=== PATIENT | male | born 1965 | race Caucasian/White ===

== ENCOUNTER → 2017-07-22 09:47 | Outpatient (CLI) | payer MEDICAID, SELFPAY ==
[2017-07-22 13:22] LABS: Basophils % 0.9 % (0.1-2.0); Eosinophils # 0.3 K/mm3 (0.0-0.4); Eosinophils % 6.4 % (0.1-12.0); Hematocrit 37.4 % (42.0-52.0); Hemoglobin 12.4 g/dL (14.1-18.0); Lymphocytes # 1.3 K/mm3 (0.7-4.5); Lymphocytes % 33.2 K/mm3 (10-50); Mean Corpuscular HGB Conc 33.2 g/dL (31.8-35.4); Mean Corpuscular Hemoglobin 32.6 pg (27.0-31.2); Mean Corpuscular Volume 98.3 fl (80-94); Mean Platelet Volume 12.8 fl (7.4-10.4); Monocytes # 0.2 K/mm3 (0.1-1.0); Monocytes % 4.8 % (1.7-9.3); Neutrophils # 2.1 K/mm3 (1.8-7.8); Neutrophils % 54.7 % (37.0-80.0); Platelet Count 74 K/mm3 (142-424); Red Blood Count 3.81 M/mm3 (4.60-6.20); Red Cell Distribution Width 14.5 % (11.5-17.5); White Blood Count 3.9 K/mm3 (4.8-10.8)
[2017-07-22 13:34] LABS: Alanine Aminotransferase 40 U/L (12-78); Albumin Level 2.8 gm/dL (3.4-5.0); Albumin/Globulin Ratio 0.6 (1.1-1.8); Alkaline Phosphatase 114 U/L (46-116); Anion Gap 9.2 mEq/L (5-15); Aspartate Amino Transferase 62 U/L (15-37); Bilirubin,Total 1.4 mg/dL (0.2-1.0); Blood Urea Nitrogen 12 mg/dL (7-18); Calcium 8.5 mg/dL (8.5-10.1); Carbon Dioxide 28 mmol/L (21.0-32.0); Chloride 105 mmol/L (98-107); Estimated Glomerular Filt Rate 70 ml/min (>60); GFR (African American) 84 ML/MIN (>60); Globulin 4.5 gm/dl (1.3-3.2); Glucose 146 mg/dL (74-106); Potassium 4.2 mmoL/L (3.5-5.1); Sodium 138 mmol/L (136-145); Total Protein,Serum 7.3 gm/dL (6.4-8.2)
== END ==
PROVIDERS: PCP Internal Medicine Adolescent Medicine; Visit Provider Internal Medicine Adolescent Medicine
DX: K70.31 Alcoholic cirrhosis of liver with ascites (principal)
CPT/HCPCS: 36415; 80053; 85025

== ENCOUNTER → 2017-07-28 12:55 | Outpatient (CLI) | payer MEDICAID, SELFPAY ==
[2017-07-27 12:00] LABS: INR 1.16 (0.9-1.1); Prothrombin Time 12.5 seconds (9.4-11.8)
== END ==
PROVIDERS: PCP Internal Medicine Adolescent Medicine; Visit Provider Surgery
DX: K46.9 Unspecified abdominal hernia without obstruction or gangrene (principal)
CPT/HCPCS: 36415; 85610

== ENCOUNTER → 2017-08-13 06:48 | Outpatient (CLI) | payer MEDICAID, SELFPAY ==
--- NOTE | 2017-08-13 06:53 | NM_ITS ---
History and Indications: Tobacco use, shortness of breath and abnormal EKG. Procedure: Patient received a 0.4 mg of Lexiscan, resting heart rate was 59 beats per resting blood pressure 109/67, with Lexiscan maximum heart rate achieved was 78 bpm which is less than 85% of the maximum predicted heart rate and a blood pressure was 66/34. With Lexiscan patient complained of shortness of breath and lightheadedness. Electrocardiogram: Resting electrocardiogram showed sinus rhythm poor R wave progression, left axis deviation, with Lexiscan there is less than 1.[address] segment depression noted from the baseline EKG. The EKG portion of the Lexiscan Myoview is nondiagnostic. Cardiac stress and resting SPECT images: Cardiac stress and rest SPECT images were obtained using technetium 99 Myoview 10.9 mCi at rest and 31.7 mCi at stress, gated SPECT further analysis of segmental wall motion and calculation of the ejection fraction also done. Cardiac stress and rest images show uniform myocardial activity without any segmental perfusion abnormality, computer derived ejection fraction is 60% with no obvious regional wall motion abnormality, right ventricle is normal size and contractility. Conclusion: 1. The EKG portion of the Lexiscan Myoview is nondiagnostic. 2. No obvious scintigraphic evidence of reversible ischemia, computer derived ejection fraction is 60% with no obvious regional wall motion abnormality, right ventricle is normal size and contractility. 3. Normal Lexiscan Myoview study.
--- NOTE | 2017-08-13 06:57 | CA_ITS ---
PROCEDURE: 2-D M-mode and color Doppler study INDICATIONS FOR THE TEST: Chest pain COPD Heart Murmur Tobacco Smoking Palpitations Fatigue Syncope Edema Hypertension Diabetes Mellitus Rheumatic Fever SOB IQBAL Obesity Hyperlipidemia Family History HD Additional History PREOP PATIENT INFORMATION HEIGHT: 69 WEIGHT:192 GENDER: Male B/P:101/69 2-D/M-MODE INTERPRETATION: 2-D MEASUREMENTS OBSERVED VALUES IN CMS Right Ventricular Dimension (RVDd) 3.2 Interventricular Septum (Thickness)(IVsd) .9 Left Ventricular Internal Dimensions(LVIDd) 5.4 Left Ventricular Posterior Wall (Thickness)(LVPWd) .9 Aortic Root 3.4 Aortic Cusp Separation 2.2 Left Atrial Dimensions (LAD) 3.9 2D 1. Left atrium is normal size, left ventricle is normal size, visually estimated ejection fraction 55% with no obvious regional wall motion abnormality. 2. The right atrium and right ventricle are relatively normal size and function. 3. The aortic valve is minimally thickened and fibrosed. 4. The mitral, tricuspid and pulmonic valve are grossly normal. 5. No significant pericardial effusion noted. DOPPLER INTERROGATION: Doppler interrogation of the aortic, mitral and tricuspid valvular presence of mild mitral and tricuspid regurgitation of no hemodynamic significance, grade 1 diastolic dysfunction seen without tissue Doppler evidence of raised left atrial pressure. CONCLUSION: 1. Normal left ventricular size, preserved left ventricular systolic function, visually estimated ejection fraction 55% with no obvious regional wall motion abnormality, grade 1 diastolic dysfunction seen without tissue Doppler evidence of raised left atrial pressure. 2. Mild mitral and tricuspid regurgitation 3. No significant pericardial effusion noted.
--- NOTE | 2017-08-13 11:05 | HMH.ITSHM ---
spironolactone furosemide nadolol pantoprazole folic acid norco
== END ==
PROVIDERS: PCP Internal Medicine Adolescent Medicine; Visit Provider Internal Medicine
DX: Z01.818 Encounter for other preprocedural examination (principal); Z01.810 Encounter for preprocedural cardiovascular examination; F17.200 Nicotine dependence, unspecified, uncomplicated; K46.9 Unspecified abdominal hernia without obstruction or gangrene; R94.31 Abnormal electrocardiogram [ECG] [EKG]
CPT/HCPCS: 78452; 93017; 93306; A9502; J2785

== ENCOUNTER → 2017-08-18 08:52 | Outpatient (CLI) | payer MEDICAID, SELFPAY ==
--- NOTE | 2017-08-18 09:02 | US_ITS ---
US abdomen complete HISTORY: ITS.REASON: CIRRHOSIS ORDERING PHYSICIAN: Saul Marc PATIENT AGE: 52 years COMPARISON: Ultrasound of 03/05/2016 FINDINGS: There is a large amount of ascites. PANCREAS:Unremarkable. No obvious mass or abnormal fluid collection. No ductal dilatation LIVER:Liver has somewhat irregular border consistent with cirrhosis. There is appropriate direction of blood flow within the portal vein. Portal vein is slightly enlarged measuring up to 14 mm. There is splenomegaly at 16 cm. No focal liver lesion apparent RIGHT KIDNEY:Unremarkable. Normal size and echogenicity. No hydronephrosis LEFT KIDNEY:Unremarkable. No hydronephrosis. Normal size and echogenicity. GALLBLADDER:Gallbladder wall appears thickened however this may be due to the overlying ascites. No gallstones or biliary dilatation. Common bile duct is 4 mm. AORTA:Not imaged SPLEEN:Enlarged at 16 cm ASCITES:Large amount of ascites IMPRESSION: The findings are consistent with cirrhosis and portal hypertension with cirrhotic appearing liver, mildly prominent portal vein, diffuse ascites, and splenomegaly. Overall no significant change
== END ==
PROVIDERS: PCP Internal Medicine Adolescent Medicine; Visit Provider Internal Medicine
DX: K74.60 Unspecified cirrhosis of liver (principal)
CPT/HCPCS: 76700

== ENCOUNTER → 2017-09-14 09:31 | Outpatient (CLI) | payer MEDICARE, SELFPAY ==
[2017-09-14 13:43] LABS: Anion Gap 12.8 mEq/L (5-15); Blood Urea Nitrogen 13 mg/dL (7-18); Carbon Dioxide 24 mmol/L (21.0-32.0); Chloride 99 mmol/L (98-107); Creatinine,Serum 1.14 mg/dL (0.70-1.30); Estimated Glomerular Filt Rate 67 ml/min (>60); GFR (African American) 81 ML/MIN (>60); Glucose 132 mg/dL (74-106); Potassium 3.8 mmoL/L (3.5-5.1); Sodium 132 mmol/L (136-145)
== END ==
PROVIDERS: Visit Provider Internal Medicine
DX: Z94.4 Liver transplant status (principal)
CPT/HCPCS: 36415; 80048

== ENCOUNTER → 2021-09-03 08:34 | Outpatient (CLI) | payer MEDICARE, MEDICAID, SELFPAY ==
--- NOTE | 2021-09-03 08:42 | US_ITS ---
FINAL REPORT CLINICAL HISTORY: CIRRHOSIS,ASCITES,HEP C,H/O ALCOHOL ABUSE FINDINGS: ULTRASOUND RIGHT UPPER QUADRANT Sonographic imaging of the right upper quadrant was obtained. The pancreas is not visualized due to bowel gas. The liver has a heterogeneous echotexture consistent with cirrhosis with no focal mass identified. The portal vein is dilated at 15 mm but with normal directional flow. There is no evidence of gallstones. There is mild gallbladder wall thickening which is a nonspecific finding. There is no biliary ductal dilatation. The common duct is normal at 5 mm. Limited images of the right kidney are unremarkable. IMPRESSION: The liver has a heterogeneous echotexture consistent with cirrhosis with no focal mass identified. Portal vein is dilated at 15 mm with normal directional flow. Mild gallbladder wall thickening, nonspecific. Reviewed, Interpreted and Dictated by Buddy Kc III, MD Transcribed by Sydnie Nye Authenticated by Buddy Kc III, MD on 09/03/2021 11:29:55 AM [facility]
== END ==
PROVIDERS: PCP Internal Medicine Adolescent Medicine; Visit Provider Nurse Practitioner Family
DX: B18.2 Chronic viral hepatitis C (principal); K74.60 Unspecified cirrhosis of liver; K72.90 Hepatic failure, unspecified without coma; R18.8 Other ascites; F10.11 Alcohol abuse, in remission; I85.00 Esophageal varices without bleeding
CPT/HCPCS: 76705

== ENCOUNTER → 2021-10-23 10:27 | Outpatient (CLI) | payer MEDICARE, MEDICAID, SELFPAY ==
[2021-10-23 11:17] LABS: Basophils % 1.5 % (0.1-2.0); Eosinophils # 0.1 K/mm3 (0.0-0.4); Eosinophils % 3.3 % (0.1-12.0); Hematocrit 46.2 % (42.0-52.0); Mean Corpuscular HGB Conc 32.5 g/dL (31.8-35.4); Mean Corpuscular Hemoglobin 32.3 pg (27.0-31.2); Mean Corpuscular Volume 99.3 fl (80-94); Mean Platelet Volume 13.1 fl (7.4-10.4); Monocytes # 0.1 K/mm3 (0.1-1.0); Monocytes % 3.7 % (1.7-9.3); Neutrophils # 1.3 K/mm3 (1.8-7.8); Neutrophils % 50.5 % (37.0-80.0); Red Blood Count 4.65 M/mm3 (4.60-6.20); White Blood Count 2.5 K/mm3 (4.8-10.8)
[2021-10-23 11:21] LABS: Ammonia 33 umol/L (9-30)
[2021-10-23 11:28] LABS: Platelet Count 31 K/mm3 (142-424)
[2021-10-23 11:35] LABS: Alanine Aminotransferase 40 U/L (12-78); Albumin Level 3.3 g/dl (3.5-5.0); Albumin/Globulin Ratio 1.1 (1.1-1.8); Alkaline Phosphatase 119 U/L (38-126); Aspartate Amino Transferase 72 U/L (17-59); Bilirubin,Total 2.4 mg/dl (0.2-1.3); Blood Urea Nitrogen 8 mg/dl (9-20); Calcium 8.6 mg/dl (8.4-10.2); Carbon Dioxide 25 mmol/L (22.0-30.0); Chloride 106 mmol/L (98-107); Chol/HDL Ratio 2.1 (1-3.5); Cholesterol 105 mg/dl (140-200); Estimated Glomerular Filt Rate 99 ml/min (>60); GFR (African American) 120 ML/MIN (>60); Globulin 3.1 g/dL (1.3-3.2); Glucose 105 mg/dl (74-100); HDL Cholesterol 51 mg/dl (40-60); Sodium 137 mmol/L (136-145); Total Protein,Serum 6.4 g/dl (6.3-8.2); Triglycerides 103 mg/dl (30-150); VLDL Cholesterol 21 mg/dL (0-40)
[2021-10-23 11:47] LABS: INR 1.28 (0.9-1.1); Prothrombin Time 14.2 seconds (10.1-12.5)
[2021-10-23 11:47] LABS: Direct LDL Cholesterol < 30.00 mg/dL (100-129)
[2021-10-23 13:47] LABS: Ferritin 70.1 ng/ml (17.9-464)
[2021-10-23 14:33] LABS: Iron 130 ug/dL (49-181)
[2021-10-23 14:42] LABS: Total Iron Binding Capacity 324 ug/dL (261-462)
[2021-10-24 09:53] LABS: Hep B Core Ab, Total Positive (Negative); Hepatitis B Surface Antigen Negative (Negative)
[2021-10-24 10:24] LABS: AFP, Tumor Marker 8.2 ng/mL (0.0-8.4)
[2021-10-25 02:08] LABS: ALT (SGPT) P5P 44 IU/L (0-55); Alpha 2-Macroglobulins, Qn 354 mg/dL (110-276); Apolipoprotein A-1 105 mg/dL (101-178); Bilirubin, Total 1.9 mg/dL (0.0-1.2); Fibrosis Score 0.97 (0.00-0.21); GGT 53 IU/L (0-65); Haptoglobin <10 mg/dL (29-370); Necroinflammat Activity Grade A1-A2 (.); Necroinflammat Activity Score 0.48 (0.00-0.17)
[2021-10-26 15:42] LABS: HCV Genotype Charge YES; Hepatitis C Genotype 1a (.)
== END ==
PROVIDERS: PCP Internal Medicine Adolescent Medicine; Visit Provider Nurse Practitioner Family
DX: K70.31 Alcoholic cirrhosis of liver with ascites (principal); B18.2 Chronic viral hepatitis C; F10.11 Alcohol abuse, in remission; K72.90 Hepatic failure, unspecified without coma; I85.00 Esophageal varices without bleeding; Z94.4 Liver transplant status
CPT/HCPCS: 36415; 80053; 80061; 81596; 82105; 82140; 82728; 83540; 83550; 85025; 85610; 86704; 87340; 87522; 87902

== ENCOUNTER 2024-11-08 10:52 | Outpatient (CLI) | payer MEDICARE, MEDICAID, SELFPAY ==
--- OUTSIDE RECORDS SUMMARY | 2024-09-03 17:30 | XMS_ITS ---
Author Organization [facility] Address [address] [place] [address] Care Team Providers Care Animal Shelter Manager Name Role Phone Jose D Hassan Primary Care Provider Angelica Stevenson Unavailable [phone] Jose D Hassan Unavailable Unavailable Migration, Provider Unavailable Unavailable REASON FOR VISIT [facility] To [facility] Conversion Encounter Medications Medication SIG (Take, Route, Frequency, Duration) Notes Start Date End Date Status Lactulose 10 GM/15ML 15 mL orally once a day for 90 days Active Pantoprazole Sodium 40 MG 1 tab(s) orall y once a day for 90 days Active Propranolol HCl 20 MG 1 tab(s) orally 2 times a day for 30 day(s) 08/14/2020 Active HYDROcodone-Acetaminophen 5-325 MG 1 tab(s) orally three times a day for 30 days 08/25/2024 Active Escitalopram Oxalate 10 MG 1 tab(s) oral ly once a day for 30 day(s) Active Lisinopril 10 MG 1 tab(s) orally once a day 04/08/2022 Active Spironolactone 50 MG 1 tab(s) orally mesfin ly at lunch for 30 day(s) Active Furosemide 20 MG 3 tab(s) orally once a day for 30 days Active Encounters Encounter Location Date Provider Diagnosis [facility] [address] [place], [place] [address] 09/03/2024 Provider Migration Plan Of Treatment Medication Medication Name Sig Start Date Stop Date Notes HYDROcodone-Acetaminophen 5- 325 MG 1 tab(s) orally three times a day for 30 days 08/25/2024 Next Appt Details Provider Name:Jose D Hassan, 01/03/2025 10:15:00 AM, [address], [address], Progress Notes * Deonte DOVEhDOB: [birth year] (59 yo M)Acc No.[id number]:09/03/2024 Patient: William SALOMON Provider: Wood tran Migration :1965 A ge:59 Y S ex:Male Date:09/03/2024 Address:[address] [place] [address], [facility] Pcp:Jose D Hassan Subjective: * Chief Complaints: * 1 . [facility] Encounter. * Medical History: * Medications: T aking Lactulose 10 GM/15ML Solution 15 mL orally once a day , Taking Lisinopril 10 MG Tablet 1 tab(s) orally once a day , Taking Furosemide 20 MG Tablet 3 tab(s) orally once a day , Taking Spironolactone 50 MG Tablet 1 tab(s) orally daily at lunch , Taking Propranolol HCl 20 MG Tablet 1 tab(s) orally 2 times a day , Taking Pantoprazole Sodium 40 MG Tablet Delayed Release 1 tab(s) orally once a day , Taking Escitalopram Oxalate 10 MG Tablet 1 tab(s) orally once a day Objective: * Vitals: Assessment: Plan: * Treatment: * * Electronic signature of Prov ider Migration on 11/08/2024 at 10:58 AM EDT Sign off status: Pending * Provider: [place] Date: 09/03/2024 Generated for Ishaan alberto/Risa/Cheng on: 11/08/2024 10:58 AM EDT
--- OUTSIDE RECORDS SUMMARY | 2024-10-25 06:00 | XMS_ITS ---
Author Organization [facility] Address [address] [facility] [address] [place] [address] Care Team Providers Care School Crossing Guard Supervisor Name Role Phone Jose D Hassan Primary Care Provider Angelica Stevenson Unavailable [phone] Jose D Hassan Unavailable Unavailable Allergies No Known Allergies Reason For Referral Reason Please set up liver ultrasound Diagnosis 1 Alcoholic cirrhosis of liver without ascites (K70.30) Referral Organization [facility] Referring Provider First Name Jose D Referring Provider Last Name Sonya Referring Provider Speciality Internal M edicine Referred Organization [facility] Referred Address [address] [facility] [address] [facility], [place], [place],[address], Referred Provider Specialty Diagnostic R adiology General Notes Yue Landa 2024 02:26:11 PM >sent to [facility] to schedule appt. Referral Priority Routine REASON FOR VISIT 3 month ck Medications Medication SIG (Take, Route, Frequency, Duration) Notes Start Date End Date Status HYDROcodone-Acetaminophen 5-325 MG 1 tab(s) orally three times a day for 30 days 10/20/2024 Active Escitalopram Oxalate 10 MG TAKE 1 TABLET BY MOUTH EVERY DAY for 30 Active Lisinopril 10 MG 1 tab(s) orally once a day 04/08/2022 Active Lactulose 10 GM/15ML 15 mL orally once a day for 90 days Active Furosemide 20 MG 3 tab(s) orally once a day for 30 days Active Pantoprazole Sodium 40 MG 1 tab(s) orall y once a day for 90 days Active Propranolol HCl 20 MG 1 tab(s) orally 2 times a day for 30 day(s) 08/14/2020 Active Spironolactone 50 MG 1 tab(s) orally mesfin ly at lunch for 30 day(s) Active Social History Tobacco Use: Social History Observation Description Date Details (start date - stop date) Former Smoker NA - NA Smoking: Question Answer Notes Are you a: former smoker How long has it been since you last smoked? 1-5 years Section Notes: Lives with and stepson. Vital Signs Temperature 98 degrees Fahrenheit 10/25/2024 Blood pressure systolic 122 mm Hg 10/26/19 25 Blood pressure diastolic 80 mm Hg 025 Heart Rate 78 /min 10/25/2024 Height 68 in 10/25/2024 Weight 180 lbs 10/25/2024 BMI 27.37 kg/m2 10/25/2024 Encounters Encounter Location Date Provider Diagnosis [address] [address] 10/25/2024 Jose D Hassan Alcoholic cirrhosis of liver without ascites K70.30 ; Thrombocytopenia D69.6 ; Hypertension, essential I10 and Chronic prescription opiate use Z79.891 Assessments Encounter Date Diagnosis (ICD Code) Assessment Notes Treatment Notes Treatment Clinical Notes Section Notes 10/25/2024 Alcoholic cirrhosis of liver without ascites (ICD-10 - K70.30) -Stable on lasix and Sprio and lactulose -stable on lactulose, having 3-4 BMs daily -CMP stable, needs PT/INR- -RUQUS for HCC screen due, will add AFP 10/25/2024 Thrombocytopenia (ICD-10 - D69.6) -following up w/heme on November 05 -No bleeding recently- no hematemesis no recent troubles -Has no troubles with healing 10/25/2024 Hypertension, essential (ICD-10 - I10) -BP stable on current regimen 10/25/2024 Chronic prescription opiate use (ICD-10 - Z79.891) Patient has been compliant with our office and [place] regulations r.e. meds. No concerns on my part about diversion or misuse. Labs and Redd reports reviewed and are appropriate. Plan Of Treatment Treatment Notes Assessment Notes Alcoholic cirrhosis of liver without asc ites -Stable on lasix and Sprio and lactulose -stable on lactulose, having 3-4 BMs daily -CMP stable, needs PT/INR- -RUQUS for HCC screen due, will add AFP Thrombocytopenia -following up w/heme on November 05 -No bleeding recently- no hematemesis no recent troubles -Has no troubles with healing Hypertension, essential -BP stable on cu rrent regimen Chronic prescription opiate use Patient has been compliant with our office and [place] regulations r.e. meds. No concerns on my part about diversion or misuse. Labs and Redd reports reviewed and are appropriate. Pending Test Test Name Order Date Ultrasound : Liver 10/25/2024 Referrals Referral Date Details 10/25/2024 10/25/2024, Please s et up liver ultrasound, [address] [facility], [place], [address], Next Appt Details Follow Up: 3 Months, Reason: Provider Name:Jose D Hassan, 01/03/2025 10:15:00 AM, [address] [place] [address], [id number], Progress Notes * Deonte DOVEhDOB: [birth year] (59 yo M)Acc No.[id number]:10/25/2024 Progress Notes Patient: William SALOMON Provider: Domenica Hassan MD :1965 A ge:59 Y S ex:Male Date:10/25/2024 Address:[address] [address], [id number] Subjective: * Chief Complaints: * 1 . 3 month ck. * HPI: g en: Stable, no new concerns, see A/P below. * Medical History: J aundice, Anasarca, Unilateral inguinal hernia, Low back pain, Tobacco use, Left hip pain, Alcohol cirrhosis of liver with ascites - history of variceal banding times 2, Hep C disease. Diagnosed 2016, Alcohol abuse, in retirement remission, Chronic opiate tx. Appropriate UDS 08/19. * Surgical History: a ppendectomy , hernia repair 10/2017. * Hospitalization/Major Diagno stic Procedure: G I bleed 2016, above . * Family History: F ather: , diagnosed with Diabetes. M other: , brain ca, diagnosed with Cancer. P aternal Grand Father: . P aternal Grand Mother: . M aternal Grand Father: . M aternal Grand Mother: . S iblings: . Johann ann: alive. 2 brother(s) , 1 sister(s) . 1 son(s) , 1 daughter(s) . . * Social History: S moking A re you a: f ormer smoker, H ow long has it been since you last smoked??1-5 years. R ecreational drug use: no. Home smoke detector use: yes. Caffeine: yes, frequency: 1 soda daily. Living Will: Yes. Alcohol: socially, whiskey daily to help him sleep r/t pain; stopped 5yrs ago. Occupation: unemployed. Lives with and stepson. * Medications: T aking Lactulose 10 GM/15ML [...] , Taking Escitalopram Oxalate 10 MG Tablet TAKE 1 TABLET BY MOUTH EVERY DAY , Taking HYDROcodone-Acetaminophen 5-325 MG Tablet 1 tab(s) orally three times a day , Medication List reviewed and reconciled with the patient * Allergies: N .K.D.A. Objective: * Vitals: N urse: dw, Pain: 8, Temp: 98, RR: 20, HR: 78, BP: 122/80, Ht: 68, Wt: 180, BMI:27.37. * Examination: G eneral Examination: General P leasant and Cooperative, NAD on RA,. Heart: R egular Rate and Rhythm, no murmur, rubs or gallops. HEENT: p harynx and tonsils normal, TM's normal. Abdomen: S oft, NTND. Neurologic Exam: A lert and oriented x 3. Skin: w ithout acute rashes. Psych N ormal Mood/Affect. Assessment: * Assessment: 1. A lcoholic cirrhosis of liver without ascites - K70.30 (Primary) 2 . T hrombocytopenia - D69.6 3 . H ypertension, essential - I10 4 .?Chronic prescription opiate use - Z79.891 Plan: * Treatment: Notes: -Stable on lasix and Sprio and lactulose -stable on lactulose, having 3-4 BMs daily -CMP stable, needs PT/INR- -RUQUS for HCC screen due, will add AFP ? Referral To: ?Reason:Please set up liver ultrasound 2.?Thrombocytopenia? Notes: -following up w/heme on November 05 -No bleeding recently- no hematemesis no recent troubles -Has no troubles with healing??3.?Hypertension, essential? Notes: -BP stable on current regimen??4.?Chronic prescription opiate use? Notes: Patient has been compliant with our [facility] and [place] regulations r.e. meds. No concerns on my part about diversion or misuse. Labs and Redd reports reviewed and are appropriate.? * Follow Up: 3 Months * * Sign off status: Completed true * Provider: Domenica Hassan MD Date: 0 10/25/2024 Generated for Printi ng/Faxing/eTransmitting on: 0 11/08/2024 10:57 AM EDT History and Physical Notes * HPI (History of Present Illness) Category Sub-Category Detail Notes Category Not es gen Stable, no new concerns, see A/P below. Examination Category Sub-Category Detail Notes Category Not es General Examination HEENT: pharynx and tonsils normal, TM's normal Heart: Regular Rate and Rhy thm, no murmur, rubs or gallops Abdomen: Soft, NTND Skin: without acute rashes Neurologic Exam: Alert and oriented x 3 General Pleasant and Coopera tive, NAD on RA, Psych Normal Mood/Affect Consultation Request Notes Referral Date Referring Provider Referred Provider Not es 10/25/2024 Jose D Hassan , Please set u p liver ultrasound
--- OUTSIDE RECORDS SUMMARY | 2024-10-25 10:23 | XMS_ITS ---
Author Organization [facility] Address [address] [place] [address] Care Team Providers Care Claim Service Representative Name Role Phone Jose D Hassan Primary Care Provider Angelica Stevenson Unavailable [phone] Jose D Hassan Unavailable Unavailable REASON FOR VISIT liver u/s order Encounters Encounter Location Date Provider Diagnosis [facility] [address] [place], [place] [address] 10/25/2024 Jose D Hassan Alcoholic cirrhosis of liver without ascites K70.30 Assessments Encounter Date Diagnosis (ICD Code) Assessment Notes Treatment Notes Treatment Clinical Notes Section Notes 10/25/2024 Alcoholic cirrhosis of liver without ascites (ICD-10 - K70.30) Plan Of Treatment Pending Test Test Name Order Date Ultrasound : Liver 10/25/2024 Next Appt Details Provider Name:Jose D Jose Sonya, 01/03/2025 10:15:00 AM, [address], [address], Progress Notes * Deonte DOVEhDOB: [birth year] (59 yo M)Acc No.[id number]:10/25/2024 Patient: Johann BOSTONSFlexWilliam :1965 A ge:59 Y S ex:Male Address:[address] [place], [address] Subjective: * Chief Complaints: * L iver u/s order * Medical History: * Surgical History: * Hospitalization/Major Diagno stic Procedure: * Medications: Objective: * Vitals: * Physical Examination: Assessment: * Assessment: 1. A lcoholic cirrhosis of liver without ascites - K70.30 Plan: * Treatment: * * Procedure Codes: * true * Date: Generated for Ishaan alberto/Risa/Cheng on: 0 11/08/2024 10:57 AM EDT
--- NOTE | 2024-11-08 10:56 | US_ITS ---
FINAL REPORT TECHNIQUE: Multiple transverse and longitudinal scans were performed of the right upper quadrant of the abdomen. CLINICAL HISTORY: ALCOHOLIC CIRRHOSIS OF LIVER W/O ASCITES FINDINGS: HEPATIC ULTRASOUND Liver parenchyma appears coarsened probably due to fatty liver. There is a small amount of fluid around the liver. There is questionable bidirectional flow within the portal veins. No intrahepatic duct dilatation is identified. No evidence of common bile duct dilatation is identified. There is a structure in the right upper quadrant which appears to represent a contracted stone filled gallbladder. IMPRESSION: Fatty liver with a contracted stone filled gallbladder. Reviewed, Interpreted and Dictated by Lele Huff MD Transcribed by Trish Parker Authenticated and [facility]
--- OUTSIDE RECORDS SUMMARY | 2024-11-08 10:58 | XMS_ITS | Encounter Summary ---
Author Organization [facility] Address [address] [place] [address] Care Team Providers Care Manager Human Resources Name Role Phone Unavailable Primary Care Provider Unavailabl e Encounter Details Date Type Department Care Team (Late st Contact Info) Description 01/14/2022 [facility] [address] [place] [address] Jose D Hassan MD [address] [facility] [address] [place] [address] Chronic hepatitis C without hepatic coma (CMS/HCC) (Primary Dx) Social History Tobacco Use Types Packs/Day Years Used Date Smoking Tobacco: Former Alcohol Use Standard Drinks/Week Comments Not Currently 0 (1 standard drink = 0.6 oz pure alcohol) Alcoholic Drinks/day: Former consumption of alcohol Sex and Gender Information Value Date Recorded Sex Assigned at Not on file Legal Sex Male 8:49 PM EDT Gender Identity Not on file Sexual Orientation Not on file documented as of this encounter Plan of Treatment Not on file documented as of this encounter Visit Diagnoses Diagnosis Chronic hepatitis C without hepatic coma (CMS/HCC)- Primary documented in this encounter
--- OUTSIDE RECORDS SUMMARY | 2024-11-08 10:58 | XMS_ITS | Clinical Summary ---
Author Organization [facility] Address [address] [place] [address] Care Team Providers Care Grey Stock Recorder Name Role Phone Unavailable Primary Care Provider Unavailabl e Social History Tobacco Use Types Packs/Day Years Used Date Smoking Tobacco: Former Alcohol Use Standard Drinks/Week Comments Not Currently 0 (1 standard drink = 0.6 oz pure alcohol) Alcoholic Drinks/day: Former consumption of alcohol Sex and Gender Information Value Date Recorded Sex Assigned at Not on file Legal Sex Male 8:49 PM EDT Gender Identity Not on file Sexual Orientation Not on file Last Filed Vital Signs Vital Sign Reading Time Taken Comments Blood Pressure 116/75 11/11/2017 9:23 AM EDT Pulse 88 11/11/2017 9:23 AM EDT Temperature 36.7 C (98 F) 11/11/2017 9:23 AM EDT Respiratory Rate 16 11/11/2017 9:23 AM EDT Oxygen Saturation - - Inhaled Oxygen Concentration - - Weight 68.9 kg (151 lb 14.4 oz) 11/11/2017 9:23 AM EDT Height 172.7 cm (5' 8 ) 11/11/2017 9:23 AM EDT Body Mass Index 23.1 11/11/2017 9:23 AM EDT Plan of Treatment Not on file
--- OUTSIDE RECORDS SUMMARY | 2024-11-08 10:58 | XMS_ITS | Encounter Summary ---
Author Organization [facility] Address [address] [place] [address] Care Team Providers Care Director Of Family Service Center Name Role Phone Unavailable Primary Care Provider Unavailabl e Encounter Details Date Type Department Care Team (Late st Contact Info) Description 09/08/2017 [facility] [address] [place] [address] Ebenezer Del Rio MD [address] [phone] Social History Tobacco Use Types Packs/Day Years Used Date Smoking Tobacco: Never Assessed Sex and Gender Information Value Date Recorded Sex Assigned at Not on file Legal Sex Male 8:49 PM EDT Gender Identity Not on file Sexual Orientation Not on file documented as of this encounter Miscellaneous Notes * Progress Notes - Ebenezer Del Rioa - 09/08/2017 5:35 PM EDT 52-year-old white man of alcoholic/HCV cirrhosis decompensated with ascites and variceal bleed, came in today for initial liver transplant evaluation. MELD 8 (INR 1.2, Cr 0.84, Na 135, Bili 0.8). 1. 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 Complications of liver disease include: ascites and EVB. Chemical dependency: alcohol in remission, last drink was 2016. Actively smoking. His MELD is low, no need for transplant evaluation at this time. # Ascites / pedal edema: Worsening. No prior H/O SBP. Diuretics - currently on Furosemide 40 mg /day and spironolactone 50 mg/day. Increase Furosemide to 60 mg daily, continue Spironolactone 50 mg daily. Repeat labs next Thursday. Educated on sodium restriction diet. Will consider TIPS if we are not able to control ascites medically. # Encephalopathy: No episodes of overt encephalopathy. # Esophageal varices: H/O EV bleed in 06/2016. Had banding twice,. Last EGD was in 07/2016. He was supposed to get another EGD, but that was not schedule. Will schedule for a repeat EGD HENRY. 2. large umbilical hernia: Reducible. Need to control ascites. Advised to wear abdominal binder. He is high risk for surgical repair given the large ascites and decompensation. We might consider TIPS if we are not able to control ascites medically. 3. Hep C Ab positive: Need to check Hep C VL to determine Hep C infection status. Will check it with next visit labs. Transplant status: early referral. RTC in 4 weeks. documented in this encounter Plan of Treatment Not on file documented as of this encounter Visit Diagnoses Not on filedocumented in this encounter
--- OUTSIDE RECORDS SUMMARY | 2024-11-08 10:58 | XMS_ITS | Patient Health Record ---
Author Organization [facility] Address [address] [place] [address] Care Team Providers Care Community Marketing Manager Name Role Phone Jose D Hassan Primary Care Provider Angelica Stevenson Unavailable [phone] Jose D Hassan Unavailable Unavailable Lucila Wood Unavailable [phone] Migration, Provider Unavailable Unavailable Allergies No Known Allergies Results Component Value Reference Range Notes COMPREHENSIVE METABOLIC PANE L ([id number]) Reviewed date:08/01/2024 10:00:10 AM Interpretation: Performing Lab:CB, [id number] [id number] Christiano Esquivel Notes/Report: NON-FASTING; NON-FASTING GLUCOSE 119 65-99 mg/dL Fasting reference interval For someone without known diabetes, a glucose value between 100 and 125 mg/dL is consistent with prediabetes and should be confirmed with a follow-up test. UREA NITROGEN (BUN) 11 7-25 mg/dL CREATININE 0.83 0.70-1.35 mg/dL EGFR 100 > OR = 60 mL/min/1.73m2 BUN/CREATININE RATIO SEE NOTE: 6-22 (calc) Not Reported: BUN and Creatinine are within reference range. SODIUM 138 135-146 mmol/L POTASSIUM 4.0 3.5-5.3 mmol/L CHLORIDE 106 98-110 mmol/L CARBON DIOXIDE 26 20-32 mmol/L CALCIUM 8.4 8.6-10.3 mg/dL PROTEIN, TOTAL 6.3 6.1-8.1 g/dL ALBUMIN 2.9 3.6-5.1 g/dL GLOBULIN 3.4 1.9-3.7 g/dL (calc) ALBUMIN/GLOBULIN RATIO 0.9 1.0-2.5 (calc) BILIRUBIN, TOTAL 2.3 0.2-1.2 mg/dL ALKALINE PHOSPHATASE 121 35-144 U/L AST 51 10-35 U/L ALT 27 9-46 U/L CBC (INCLUDES DIFF/PLT) (639 9) Reviewed date:08/01/2024 10:00:02 AM Interpretation: Performing Lab:CB, [facility] [id number], [facility] Christiano Esquivel Notes/Report: NON-FASTING; NON-FASTING NON-FASTING; NON-FASTING NON-FASTING; NON-FASTING WHITE BLOOD CELL COUNT 2.2 3.8-10.8 Thousand/ uL RED BLOOD CELL COUNT 3.84 4.20-5.80 Million/uL HEMOGLOBIN 12.9 13.2-17.1 g/dL HEMATOCRIT 36.1 38.5-50.0 % MCV 94.0 80.0-100.0 fL MCH 33.6 27.0-33.0 pg MCHC 35.7 32.0-36.0 g/dL For adults, a slight decrease in the calculated MCHC value (in the range of 30 to 32 g/dL) is most likely not clinically significant; however, it should be interpreted with caution in correlation with other red cell parameters and the patient's clinical condition. RDW 14.4 11.0-15.0 % PLATELET COUNT 27 140-400 Thousand/uL [facility] ed by repeat analysis. MPV 7.5-12.5 fL Due to platelet or RBC variability in size or shape the result cannot be reported accurately. ABSOLUTE NEUTROPHILS 1115 2092-4848 cells/uL ABSOLUTE LYMPHOCYTES 711 041-0815 cells/uL ABSOLUTE MONOCYTES 169 200-950 cells/uL ABSOLUTE EOSINOPHILS 110 15-500 cells/uL ABSOLUTE BASOPHILS 20 0-200 cells/uL NEUTROPHILS 50.7 LYMPHOCYTES 35.7 MONOCYTES 7.7 EOSINOPHILS 5.0 BASOPHILS 0.9 COMMENT(S) Review of the peripheral smear reveals decreased numbers of platelets. PLATELET ESTIMATION DECREASED ADEQUATE CBC MORPHOLOGY NORMAL Anisocytosis 2 + Macrocytosis 2 + Poikilocytosis 2 + Ovalocytes 2 + Shawn cells 2 + Reason For Referral Reason Hematology Diagnosis 1 Thrombocytopenia (D6 9.6) Referral Organization [facility] ELIZABETH ESPINOSA Referring Provider First Name Angelica Referring Provider Last Name Elva Referring Provider Speciality Family Pra ctice Referred Organization [facility] Referred Address [address] [facility], [place], [place],[address] Referred Provider Specialty Hematology/O ncology General Notes Yue Landa 2024 02:55:09 PM >Faxed to Dr[facility] Dejesus at [facility] Hematology Referral Priority Urgent Reason Urology Consult Diagnosis 1 Hydrocele (N43.3) Referral Organization [facility] Referring Provider First Name Lucila Referring Provider Last Name Nina Referring Provider Speciality Family Pra ctice Referred Organization [facility] Referrals Referred Address [address] [place], [place],[address],[place] Referred Provider Specialty Urology General Notes Yue Landa 2024 11:06:20 AM >sent to Urology in [place] Referral Priority Routine Reason Please set up liver ultrasound Diagnosis 1 Alcoholic cirrhosis of liver without ascites (K70.30) Referral Organization [facility] ELIZABETH PUCKETT Referring Provider First Name Jose D Referring Provider Last Name Sonya Referring Provider Speciality Internal M edicine Referred Organization [facility] Referred Address [address],[address],[place] Referred Provider Specialty Diagnostic R adiology General Notes Yue Landa 2024 02:26:11 PM >sent to [facility] to schedule appt. Referral Priority Routine Medications Medication SIG (Take, Route, Frequency, Duration) Notes Start Date End Date Status Propranolol HCl 20 MG 1 tab(s) orally [...] once a day for 90 days Active Spironolactone 50 MG 1 tab(s) orally mesfin ly at lunch for 30 day(s) Active Furosemide 20 MG 3 tab(s) orally once a day for 30 days Active Immunizations Vaccine Route Administration Date Status Comme nts SHINGRIX IM Intramuscular 01/13/2023 Administered SHINGRIX IM Intramuscular 04/21/2023 Administered Prevnar PCV-20 (Pneumococcal conjugate 20) IM Intramuscular 04/19/2024 Administered Pneumovax 23 IM Intramuscular 12/22/2017 Administered Influenza-Fluzone 3+years (NON-MEDICARE) IM Intramuscular 04/03/2016 Administered Influenza-Fluzone 3+years (NON-MEDICARE) IM Intramuscular 02/12/2017 Administered Influenza (Fluzone)--Medicare only IM Intramuscular 02/23/2018 Administered FLUZONE 6MO - OLDER IM Intramuscular 02/08/2019 Administer ed FLUZONE 6MO - OLDER IM Intramuscular 04/21/2023 Administer ed FLUZONE 6MO - OLDER IM Intramuscular 2024 Administer ed Flublok IM Intramuscular 02/14/2020 Administered Flublok IM Intramuscular 02/19/2021 Administered Flublok IM Intramuscular 04/08/2022 Administered Boostrix IM Intramuscular 01/13/2023 Administered Social History Tobacco Use: Social History Observation Description Date Details (start date - stop date) Former Smoker NA - NA Smoking: Question Answer Notes Are you a: former smoker How long has it been since you last smoked? 1-5 years Section Notes: Lives with and stepson. Lives with and stepson. Lives with and stepson. Lives with and stepson. Lives with and stepson. Lives with and stepson. Lives with and stepson. Lives with and stepson. Lives with and stepson. Lives with and stepson. Lives with and stepson. Lives with and stepson. Lives with and stepson. Lives with and stepson. Lives with and stepson. Lives with and stepson. Lives with and stepson. Lives with and stepson. Lives with and stepson. Lives with and stepson. Lives with and stepson. Lives with and stepson. Lives with and stepson. Lives with and stepson. Lives with and stepson. Lives with and stepson. Lives with and stepson. Lives with and stepson. Lives with and stepson. Lives with and stepson. Lives with and stepson. Lives with and stepson. Lives with and stepson. Lives with and stepson. Lives with and stepson. Lives with and stepson. Lives with and stepson. Lives with and stepson. Lives with and stepson. Lives with and stepson. Lives with and stepson. Lives with and stepson. Lives with and stepson. Problems Problem Type SNOMED Code ICD Code Onset Dates Problem Status W/U Status Risk Notes Problem 67514736 Generalized anxi ety disorder (F41.1) Active confirmed Problem 6297865 Primary insomnia (F51.01) Active confirmed Problem 917370529 Alcoholic cirrho sis of liver without ascites (K70.30) Active confirmed Problem 421313958 Alcoholic cirrho sis of liver with ascites (K70.31) Active confirmed Problem 847424883 Low back pain (M54.5) Active confirmed Problem 856278565 Tobacco use (Z72.0) Active confirmed Problem 131425200 Hyperlipemia, idiopathic familial (E78.5) Active confirmed Problem 28171992 Hypertension, essential (I10) Active confirmed Problem 84606274 Left hip pain (M25.552) Active confirmed Problem 539871517 Thrombocytopenia (D69.6) Active confirmed Problem 530574366 Primary osteoarthritis involving multiple joints (M15.0) Active confirmed Problem 206445435 Chronic hepatiti s C without hepatic coma (B18.2) Active confirmed Problem 918677786 Hepatitis C anti body test positive (R76.8) Active confirmed Problem 92386483 Unilateral ingui nal hernia without obstruction or gangrene, recurrence not specified (K40.90) Active confirmed Problem 448601222 Insomnia, unspecified type (G47.00) Active confirmed Problem 720491523 History of hyperlipidemia (Z86.39) Active confirmed Problem 269579219 Chronic prescrip tion opiate use (Z79.891) Active confirmed Vital Signs Heart Rate 78 /min 10/25/2024 Temperature 98 degrees Fahrenheit 10/25/2024 Blood pressure diastolic 80 mm Hg 10/25/2024 Height 68 in 10/25/2024 Blood pressure systolic 122 mm Hg 10/25/2024 Weight 180 lbs 10/25/2024 BMI 27.37 kg/m2 10/25/2024 Encounters Encounter Location Date Provider Diagnosis [facility] [address] [place] [address] 09/03/2024 Provider Migration [facility] [place] [address] [address] 2024 Jose D Hassan Primary osteoarthrit is involving multiple joints M15.0 ; Alcoholic cirrhosis of liver without ascites K70.30 ; Routine medical exam Z00.00 ; Hypertension, essential I10 and Encounter for immunization Z23 [facility] [place] [address] [address] 04/19/2024 Jose D Hassan Alcoholic cirrhosis of liver with ascites K70.31 ; Chronic prescription opiate use Z79.891 ; Hypertension, essential I10 ; Routine medical exam Z00.00 and Encounter for immunization Z23 [facility] [place] [address] [address] 07/26/2024 Jose D Hassan Alcoholic cirrhosis of liver with ascites K70.31 ; Thrombocytopenia D69.6 ; Hypertension, essential I10 ; Generalized anxiety disorder F41.1 and Chronic prescription opiate use Z79.891 [facility] [place] [address] [address] 10/25/2024 Jose D Hassan Alcoholic cirrhosis of liver without ascites K70.30 ; Thrombocytopenia D69.6 ; Hypertension, essential I10 and Chronic prescription opiate use Z79.891 [facility] [place] [address] [address] 11/11/2023 Jose D Steeleson [facility] [place] [address] [address] 12/10/2023 Jose D Hassan Alcoholic cirrhosis of liver with ascites K70.31 [facility] [place] [address] [address] 12/10/2023 Jose D Besson [facility] [place] [address] [address] 01/07/2024 Jose D Besson [facility] [place] [address] [address] 02/05/2024 Jose D Besson [facility] [place] [address] [address] 03/03/2024 Jose D Besson [facility] [place] [address] [place] [address] 03/31/2024 Jose D Besson [facility] [place] [address] [place] [address] 04/15/2024 Jose D Besson [facility] [place] [address] [place] [address] 05/02/2024 Jose D Besson [facility] [place] [address] [place] [address] 05/27/2024 Jose D Besson [facility] [place] [address] [place] [address] 06/30/2024 Jose D Besson [facility] [place] [address] [place] [address] 07/27/2024 Jose D Besson [facility] [place] [address] [place] [address] 08/10/2024 Lucila McMarky Hydrocele N43.3 [facility] [place] [address] [place] [address] 08/25/2024 Jose D Besson [facility] [place] [address] [place] [address] 09/22/2024 Jose D Besson [facility] [place] [address] [place] [address] 10/20/2024 Jose D Besson [facility] [place] [address] [place] [address] 10/25/2024 Jose D Besson Alcoholic cirrhosis of liver without ascites K70.30 [facility] [place] [address] [place] [address] 11/02/2024 Jose D Besson [facility] [place] [address] [place] [address] 11/07/2024 Jose D Besson Assessments Encounter Date Diagnosis (ICD Code) Assessment Notes Treatment Notes Treatment Clinical Notes Section Notes 12/10/2023 Alcoholic cirrhosis of liver with ascites (ICD-10 - K70.31) 2024 Alcoholic cirrhosis of liver without ascites (ICD-10 - K70.30) -History of decompensated alcoholic cirrhosis with varices and ascites -Previously followed with [facility] and transplant, has not seen them in several years -Varices: on BB, stable. Needs repeat EGD for surveillance. -SBP: no ascites, fever, chills, abd pain -HCC surveillance: RUQ U/S scheduled for 01/21 -HE: on lactulose, 4 BM/day, no confusion -Volume management: On Lasix and spironolactone -Will be establishing with Dr. Marc's office this Thursday for management of cirrhosis - they can order repeat labs for MELD and repeat EGD -He has severe thrombocytopenia and leukopenia with mild anemia as evidenced on labs in September, he has been referred to Dr. Luo due to concern for possible bone marrow disorder 2024 Primary osteoarthritis involving multiple joints (ICD-10 - M15.0) -Chronic, controlled pain on Lortab 04/19/2024 Alcoholic cirrhosis of liver with ascites (ICD-10 - K70.31) Overall patient is doing remarkably well. Has maintained sobriety for over 10 years. Follows with GI and is up-to-date with screening EGDs. Labs have been good. Will repeat labs in 3 months. 04/19/2024 Chronic prescription opiate use (ICD-10 - Z79.891) Overall good pain control. Screening drug screen done in September was appropriate for his current prescription. 07/26/2024 Alcoholic cirrhosis of liver with ascites (ICD-10 - K70.31) Stable. Will get CMP and CBC today, will personally review once resulted. Continue lasix/spironolacton e for fluid retention and lactulose for prevention of HE 07/26/2024 Thrombocytopenia (ICD-10 - D69.6) 08/10/2024 Hydrocele (ICD-10 - N43.3) 10/25/2024 Alcoholic cirrhosis of liver without ascites (ICD-10 - K70.30) -Stable on lasix and Sprio and lactulose -stable on lactulose, having 3-4 BMs daily -CMP stable, needs PT/INR- -RUQUS for HCC screen due, will add AFP 10/25/2024 Thrombocytopenia (ICD-10 - D69.6) -following up w/heme on November 05 -No bleeding recently- no hematemesis no recent troubles -Has no troubles with healing 10/25/2024 Alcoholic cirrhosis of liver without ascites (ICD-10 - K70.30) 10/25/2024 Hypertension, essential (ICD-10 - I10) -BP stable on current regimen 07/26/2024 Hypertension, essential (ICD-10 - I10) Well controlled, continue current regimen 04/19/2024 Hypertension, essential (ICD-10 - I10) Good control... no changes 2024 Routine medical exam (ICD-10 - Z00.00) -LDCT this Thursday -Flu shot given today -Declines colon cancer screening today 2024 Hypertension, essential (ICD-10 - I10) -Chronic, well controlled 04/19/2024 Routine medical exam (ICD-10 - Z00.00) Up-to-date with colonoscopy and lung cancer screening. Up-to-date with vaccines, Prevnar 20 today. No falls. is healthcare surrogate. Good functional status. Cognitive impairment not noted 07/26/2024 Generalized anxiety disorder (ICD-10 - F41.1) Stable, continue current management 10/25/2024 Chronic prescription opiate use (ICD-10 - Z79.891) Patient has been compliant with our office and [place] regulations r.e. meds. No concerns on my part about diversion or misuse. Labs and Redd reports reviewed and are appropriate. 07/26/2024 Chronic prescription opiate use (ICD-10 - Z79.891) Patient has been compliant with our office and [place] regulations r.e. meds. No concerns on my part about diversion or misuse. Labs and Redd reports reviewed and are appropriate. Patient not a candidate for NSAIDs or high-dose Tylenol. See prior notes about pain control. Has been able to stay off alcohol on opiates 04/19/2024 Encounter for immunization (ICD-10 - Z23) 2024 Encounter for immunization (ICD-10 - Z23) Plan Of Treatment Pending Test Test Name Order Date Ultrasound : Liver 07/16/2023 Ultrasound : Liver 10/25/2024 Ultrasound : Liver 10/25/2024 CT Scan : Abdomen and Pelvis, with and w ithout contrast 02/28/2016 C-CBC 02/23/2018 C-CMP 02/23/2018 C-CMP 08/14/2020 C-LIPID PANEL 08/14/2020 C-DRUG SCREEN 12 PANEL 11/15/2019 H-HCV rna load test 03/10/2016 H-HBV rna load test 03/10/2016 M-Complete Blood Count Auto Diff 022 M-Comprehensive Metabolic Panel 10/16/19 22 M-Lipid Panel 10/15/2021 C-Urine with microscopy 11/15/2019 CT Scan : Chest, Lung Cancer Screening 0 02/19/2021 CT Scan : Chest, Lung Cancer Screening 0 07/16/2023 CT CHEST LOW DOSE 04/21/2023 Next Appt Details Provider Name:Jose D Hassan, 01/03/2025 10:15:00 AM, [address] [facility] [address], [place], [address], Insurance Providers Payer Name Payer Address Payer Phone Subscriber Number Group Number Insured Name Patient Relationship to Insured Coverage Start Date Coverage End Date [place] [address] [place] [address] [id number] [place] Self - patient is the insured MEDICAID EDS [address] [place] [address] [id number] [place] Self - patient is the insured Right90 [address] [facility] [address] [place], [place] [address] ACL [place] Self - patient is the insured Medical (General) History Medical History History ICD Code Jaundice Anasarca Unilateral inguinal hernia Low back pain Tobacco use Left hip pain Alcohol cirrhosis of liver w ith ascites - history of variceal banding times 2 Hep C disease. Diagnosed 2016 Alcohol abuse, in snf remission F1 0.10 Chronic opiate tx. Appropriate UDS 08/19 Surgical History Surgery Date(Month/Year) appendectomy hernia repair 10/2017 Hospitalization History Reason Date(Month/Year) above GI bleed 2016
--- OUTSIDE RECORDS SUMMARY | 2024-11-08 10:58 | XMS_ITS | Encounter Summary ---
Author Organization Healthcare Address [address] [place] [address] Care Team Providers Care Tourist Information Officer Name Role Phone Unavailable Primary Care Provider Unavailabl e Reason for Referral * Consultation (Routine) - Authorized Specialty Diagnoses / Procedures Referred By Contac t Referred To Contact Hematology / Blood and Marrow Transplant Diagnoses Thrombocytopenia, unspecified (CMS/HCC) Jose D Hassan MD [address] [place] [address] [place] [address] Phone: tel: fax: [facility] [address] [facility] [address] [place] [address] Phone: tel: fax: Referral ID Status Reason Start Date Expiration Date Visits Requested Visits Authorized [id number] Authorized Specialty Services Required 08/01/2024 01/31/2026 1 1 Encounter Details Date Type Department Care Team (Late st Contact Info) Description 08/01/2024 Community [facility] [address] [place] [address] Jose D Hassan MD [facility] [address] [address] Thrombocytopenia, unspecified (CMS/HCC) (Primary Dx) Social History Tobacco Use [...] as of this encounter Plan of Treatment Scheduled Referrals Name Type Priority Associated Diagnoses Orde r Schedule Ambulatory referral to Benign Hematology Outpatient Referral Routine Thrombocytopenia, unspecified (CMS/HCC) Expected: 08/08/2024 (Approximate), Expires: 02/01/2026 documented as of this encounter Visit Diagnoses Diagnosis Thrombocytopenia, unspecified (CMS/HCC)- Primary Thrombocytopenia, unspecified documented in this encounter
--- OUTSIDE RECORDS SUMMARY | 2024-11-08 10:58 | XMS_ITS | Encounter Summary ---
Author Organization Healthcare Address [address] [place] [address] Care Team Providers Care Medical Stenographer Name Role Phone Unavailable Primary Care Provider Unavailabl e Encounter Details Date Type Department Care Team (Late st Contact Info) Description 11/10/2017 [facility] OTTR Encounter Historical OTTR [address] [place] [address] Melisa Zeng, RN [id number] [address] [phone] Social History Tobacco Use Types Packs/Day Years Used Date Smoking Tobacco: Never Assessed Sex and Gender Information Value Date Recorded Sex Assigned at Not on file Legal Sex Male 8:49 PM EDT Gender Identity Not on file Sexual Orientation Not on file documented as of this encounter Miscellaneous Notes * Progress Notes - Melisa Zeng - 11/10/2017 1:12 PM EDT spoke to pt regarding appt tomorrow. Pt scheduled with ID. He verbalized understanding. * Progress Notes - Enid Dixon - 10/30/2017 7:00 PM EDT This is a 52y male who has a past history notable for alcoholic/HCV cirrhosis decompensated with ascites, varices p/w leaking umbilical hernia. He was admitted for possible hernia repair and underwent surgical repair 10/27 for infected, incarcerated hernia. During this process, his MELD score elevated to 27, driven by creatinine. As he has recovered from this acute insult, his MELD score has decreased, now 16. Transplant surgery was asked to see for possible transplant evaluation.Patient was seen in transplant clinic August 2017 with MELD 8, and referred back to GI. He is currently still being treated for SBP, with MELD score now down to 16 as of 10/28 (and with a now lower Cr). Transplant will follow up as an outpatient. Please schedule pt to be seen in Transplant Hepatology 1-2 weeks following discharge. Cirrhosis: - decompensated by ascites, varices - 10/28 MELD 16 ( INR 1.7, Na 133, Cr 1.22, bili 2.1 on 10/28) SBP -FCC 10/29 > 8000 - on Rocephin - Plans for repeat paracentesis next week per primary note BIJAN - cr improved to 1.04 from 4 at admission * Progress Notes - Sandie Gooden - 10/13/2017 12:25 PM EDT Received vm from pt requesting appt information. Pt is scheduled on 10/20 at 9:00am. Tried to reach pt, but had to leave a vm with appt info. * Progress Notes - Melisa Zeng - 09/15/2017 10:24 AM EDT left voicemail for pt with increase in aldactone to 100mg daily. Prescription eprescribed to local pharmacy * Progress Notes - Ebenezer Del Rio - 09/15/2017 9:41 AM EDT Labs reviewed, let's increased Spironolactone to 100 mg daily, continue Furosemide 60 mg daily, repeat labs next Thursday. * Progress Notes - Melisa Zeng - 09/15/2017 6:52 AM EDT labs have entered for review. Pt states increase in diuretics is not helping with fluid accumulation. Sent to for review * Progress Notes - Melisa Zeng - 09/14/2017 11:13 AM EDT unable to get EGD until October at . Pt can get in this thursday at [place]. REsults to be faxedto us. Pt states increase lasix is not helping. Labs drawn this morning at [facility]. Will awaitresults for potential dose change * Progress Notes - Melisa Zeng - 09/11/2017 1:31 PM EDT EGD order eamiled to endo sched * Progress Notes - Ebenezer Del Rio - 09/08/2017 5:36 PM EDT Please schedule him for an EGD [facility]. * Progress Notes - Cassidy Alcantar - 08/24/2017 2:16 PM EDT Received CD images, taken to radiology for upload. Radiology reports saved in [employer]. * Progress Notes - Cassidy Alcantar - 08/20/2017 11:24 AM EDT ICE packet mailed USPS [id number]. Image request sent to [facility]. * Progress Notes - Irene Pascual - 08/20/2017 10:40 AM EDT Mr Hill left a message requesting that he be scheduled for an appointment and then notified viahis voicemail, he indicates he is difficult to reach by phone. Scheduled ICE for 09/08 at 8:30am - lvm on his phone. Called and notified Cassidy at Dr Marc's office. * Progress Notes - Irene Pascual E - 08/19/2017 1:57 PM EDT Called to schedule ICE - no answer, left voicemail message with contact information and request forreturn call. * Progress Notes - Irene Pascual E - 08/19/2017 10:02 AM EDT Pt has [facility] records - note to [facility] for records to pot puller. documented in this encounter Plan of Treatment Not on file documented as of this encounter Procedures Procedure Name Priority Date/Time Associated Diagnosis Comments OTTR LAB RESULTS (MANUAL) Routine 10/30/2017 3:36 AM EDT OTTR LAB RESULTS (MANUAL) Routine 10/29/2017 6:16 AM EDT OTTR LAB RESULTS (MANUAL) Routine 10/28/2017 6:27 AM EDT OTTR LAB RESULTS (MANUAL) Routine 10/27/2017 5:14 AM EDT OTTR LAB RESULTS (MANUAL) Routine 10/26/2017 5:49 AM EDT OTTR LAB RESULTS (MANUAL) Routine 10/25/2017 4:56 AM EDT OTTR LAB RESULTS (MANUAL) Routine 10/24/2017 4:39 AM EDT OTTR LAB RESULTS (MANUAL) Routine 10/23/2017 3:33 AM EDT OTTR LAB RESULTS (MANUAL) Routine 10/22/2017 4:00 AM EDT OTTR LAB RESULTS (MANUAL) Routine 10/21/2017 2:08 AM EDT OTTR LAB RESULTS (MANUAL) Routine 10/20/2017 12:01 PM EDT OTTR LAB RESULTS (MANUAL) Routine 09/14/2017 6:51 AM EDT OTTR LAB RESULTS (MANUAL) Routine 09/08/2017 8:55 AM EDT OTTR LAB RESULTS (MANUAL) Routine 08/10/2017 10:07 AM EDT documented in this encounter Results * OTTR LAB RESULTS (MANUAL) (10/30/2017 3:36 AM EDT) External Estimated GFR 78.81 EXTERNAL LAB 10/30/2017 3:36 AM EDT Narrative EXTERNAL LAB - 10/30/2017 4:43 AM EDT Automated LAB Interface Historical Provider MD LAB BLOOD ORDERABLES Nikki l Result EXTERNAL LAB * OTTR LAB RESULTS (MANUAL) (10/29/2017 6:16 AM EDT) External Estimated GFR 77.94 EXTERNAL LAB 10/29/2017 6:16 AM EDT Narrative EXTERNAL LAB - 10/29/2017 7:18 AM EDT Automated LAB Interface Historical Provider MD LAB BLOOD ORDERABLES Nikki l Result EXTERNAL LAB * OTTR LAB RESULTS (MANUAL) (10/28/2017 6:27 AM EDT) External Estimated GFR 65.55 EXTERNAL LAB 10/28/2017 6:27 AM EDT Narrative EXTERNAL LAB - 10/28/2017 7:52 AM EDT Automated LAB Interface us Historical Provider MD LAB BLOOD ORDERABLES Nikki l Result EXTERNAL LAB * OTTR LAB RESULTS (MANUAL) (10/27/2017 5:14 AM EDT) External Estimated GFR 58.32 EXTERNAL LAB 10/27/2017 5:14 AM EDT Narrative EXTERNAL LAB - 10/27/2017 6:12 AM EDT Automated LAB Interface Historical Provider MD LAB BLOOD ORDERABLES Nikki l Result EXTERNAL LAB * OTTR LAB RESULTS (MANUAL) (10/26/2017 5:49 AM EDT) External Estimated GFR 49.36 EXTERNAL LAB 10/26/2017 5:49 AM EDT Narrative EXTERNAL LAB - 10/26/2017 6:54 AM EDT Automated LAB Interface Historical Provider MD LAB BLOOD ORDERABLES Nikki l Result Performing Organization Address City/[facility]/ZIP Co de Phone Number EXTERNAL LAB * OTTR LAB RESULTS (MANUAL) (10/25/2017 4:56 AM EDT) External Estimated GFR 40.29 EXTERNAL LAB 10/25/2017 4:56 AM EDT Narrative EXTERNAL LAB - 10/25/2017 2:44 PM EDT Automated LAB Interface us Historical Provider MD LAB BLOOD ORDERABLES Nikki l Result Performing Organization Address City/[facility]/ZIP Co de Phone Number EXTERNAL LAB * OTTR LAB RESULTS (MANUAL) (10/24/2017 4:39 AM EDT) Pathologist [facility] External Estimated GFR 34.46 EXTERNAL LAB 10/24/2017 4:39 AM EDT Narrative EXTERNAL LAB - 10/24/2017 6:18 AM EDT Automated LAB Interface Historical Provider MD LAB BLOOD ORDERABLES Nikki l Result EXTERNAL LAB * OTTR LAB RESULTS (MANUAL) (10/23/2017 3:33 AM EDT) External Estimated GFR 28.25 EXTERNAL LAB 10/23/2017 3:33 AM EDT Narrative EXTERNAL LAB - 10/23/2017 8:06 AM EDT Automated LAB Interface Historical Provider MD LAB BLOOD ORDERABLES Nikki l Result EXTERNAL LAB * OTTR LAB RESULTS (MANUAL) (10/22/2017 4:00 AM EDT) External Estimated GFR 24.23 EXTERNAL LAB 10/22/2017 4:00 AM EDT Narrative EXTERNAL LAB - 10/22/2017 4:46 AM EDT Automated LAB Interface Historical Provider MD LAB BLOOD ORDERABLES Nikki l Result Performing Organization Address City/[facility]/ZIP Co de Phone Number EXTERNAL LAB * OTTR LAB RESULTS (MANUAL) (10/21/2017 2:08 AM EDT) External Estimated GFR 15.91 EXTERNAL LAB 10/21/2017 2:08 AM EDT Narrative EXTERNAL LAB - 10/21/2017 3:05 AM EDT Automated LAB Interface Historical Provider MD LAB BLOOD ORDERABLES Nikki l Result EXTERNAL LAB * OTTR LAB RESULTS (MANUAL) (10/20/2017 12:01 PM EDT) External Estimated GFR 13.02 EXTERNAL LAB 10/20/2017 12:0 1 PM EDT Narrative EXTERNAL LAB - 10/20/2017 12:55 PM EDT Automated LAB Interface Historical Provider MD LAB BLOOD ORDERABLES Nikki l Result EXTERNAL LAB * OTTR LAB RESULTS (MANUAL) (09/14/2017 6:51 AM EDT) External Glucose 132 mg/dL EXTERNAL LAB External BUN 13 mg/dL EXTERNAL LAB External Creatinine Blood 1.14 mg/dL EXTERNAL LAB External Sodium (Na) 132 mmol/L EXTERNAL LAB External Potassium (K) 3.8 mmol/L EXTERNAL LAB External Chloride (Cl) 99 mmol/L EXTERNAL LAB External Carbon Dioxide (CO2) 24 mmol/L EXTERNAL LAB External Estimated GFR 70.88 EXTERNAL LAB 09/14/2017 6:51 AM EDT Narrative EXTERNAL LAB - 09/15/2017 6:52 AM EDT [facility] us Historical Provider MD LAB BLOOD ORDERABLES Nikki l Result EXTERNAL LAB * OTTR LAB RESULTS (MANUAL) (09/08/2017 8:55 AM EDT) Pathologist [facility] External Estimated GFR 100.83 EXTERNAL LAB 09/08/2017 8:55 AM EDT Narrative EXTERNAL LAB - 09/08/2017 10:20 AM EDT Automated LAB Interface us Historical Provider MD LAB BLOOD ORDERABLES Nikki l Result EXTERNAL LAB * OTTR LAB RESULTS (MANUAL) (08/10/2017 10:07 AM EDT) External WBC 5.5 k/uL EXTERNAL LAB External Hemoglobin (Hgb) 13.7 gm/dL EXTERNAL LAB External Hematocrit (Hct) 42.6 % EXTERNAL LAB External Platelet Count (Plt) 110 k/uL EXTERNAL LAB External Glucose 92 mg/dL EXTERNAL LAB External BUN 3 mg/dL EXTERNAL LAB External Creatinine Blood 1.1 mg/dL EXTERNAL LAB External Sodium (Na) 138 mmol/L EXTERNAL LAB External Potassium (K) 4.1 mmol/L EXTERNAL LAB External Chloride (Cl) 102 mmol/L EXTERNAL LAB External Carbon Dioxide (CO2) 27.9 mmol/L EXTERNAL LAB External Calcium (Ca) 8.7 mg/dL EXTERNAL LAB External AST (SGOT) 47 units/L EXTERNAL LAB External ALT (SGPT) 28 units/L EXTERNAL LAB External Alkaline Phosphatase 124 U/L EXTERNAL LAB External Bilirubin Total 1.10 mg/dL EXTERNAL LAB External Total Protein 8.2 g/dL EXTERNAL LAB External Albumin 2.9 g/dL EXTERNAL LAB External Prothrombin Time (PT) 12.2 seconds EXTERNAL LAB External INR - Internormal Ratio 1.3 EXTERNAL LAB External Estimated GFR 73.87 EXTERNAL LAB 08/10/2017 10:0 7 AM EDT Narrative EXTERNAL LAB - 08/19/2017 10:10 AM EDT [facility] us Historical Provider LAB BLOOD ORDERABLES Nikki l Result EXTERNAL LAB documented in this encounter Visit Diagnoses Not on filedocumented in this encounter
== END 2024-11-08 23:59 | disposition home or self-care (01) ==
LOC: RAD 10:54
PROVIDERS: PCP Internal Medicine Adolescent Medicine; Visit Provider Internal Medicine Adolescent Medicine
DX: K76.0 Fatty (change of) liver, not elsewhere classified (principal); K80.20 Calculus of gallbladder without cholecystitis without obstruction
CPT/HCPCS: 76705